=== PATIENT | male | born 1960 | race Caucasian/White ===

== ENCOUNTER → 2021-01-28 | Outpatient (CLI) | payer OTHER ==
[~2021-01-28] MED LIST: BACTRIM DS TAB1 EACH PO; CATAPRES 0.1MG0.1 MG PO; FLOMAX0.4 MG PO; LISINOPRIL40 MG PO; LOPRESSOR 25 MG25 MG PO; NORCO 5-325 TA1 EACH PO; NORVASC10 MG PO; VENTOLIN HFA 66.7 GM INH; VITAMIN D32000 UNI1 PO; ZANAFLEX4 MG PO
== END ==
LOC: EXRD 15:24
DX: J64 Unspecified pneumoconiosis (principal)
CPT/HCPCS: 71046